=== PATIENT | male | born 1975 | race Caucasian/White ===

== ENCOUNTER 2017-05-24 12:34 | Emergency (ER) | payer MEDICAID ==
[~2017-05-24] VITALS: Ht 177.8 cm; Wt 78.0 kg
[2017-05-24] MEDS ORDERED: SODIUM CHLORIDE 0.9% 1,000ML IVBOLUS ONE ×2 (13:00→15:30)
[2017-05-24 13:27] LABS: BLOOD UREA NITROGEN 18 mg/dL (7-18)
[2017-05-24 13:33] LABS: ASPARTATE AMINO TRANSFERASE 160 U/L (15-37)
[2017-05-24 13:35] LABS: IS PT STATUS REG ER OR PRE ER? YES
[2017-05-24] MEDS ORDERED: LORazepam 2 MG/ML, 1ML IVPush ONE (14:00)
[2017-05-24 14:29] LABS: DAU SCREEN DISCLAIMER
[2017-05-24 17:51] VITALS: BP 129/84
[2017-05-24] MEDS ORDERED: BACITRACIN ZINC OINT 500U/GM, 0.9 GM ONE (18:02)
== END 2017-05-24 18:42 | disposition home or self-care (01) ==
LOC: ED 18:23
DX: S90.822A Blister (nonthermal), left foot, initial encounter (principal); S90.821A Blister (nonthermal), right foot, initial encounter; F15.129 Other stimulant abuse with intoxication, unspecified; F41.9 Anxiety disorder, unspecified; E86.0 Dehydration; I10 Essential (primary) hypertension; X08.8XXA Exposure to other specified smoke, fire and flames, initial encounter; Y93.89 Activity, other specified; Y92.89 Other specified places as the place of occurrence of the external cause; Y99.8 Other external cause status
CPT/HCPCS: 36415; 80053; 80307; 81001; 82550; 84484; 85025; 87086; 93005; 96360; 99285; J7030